=== PATIENT | female | born 1960 | race Caucasian/White ===

== ENCOUNTER → 2020-08-27 | Outpatient (CLI) | payer OTHER ==
--- NOTE | 2020-08-27 10:56 | XR ---
EXAMINATION TYPE: XR knee limited RT DATE OF EXAM: 08/27/2020 COMPARISON: NONE HISTORY: Pain TECHNIQUE: Two views are submitted. FINDINGS: Joint spaces are preserved. Osseous structures are intact. No acute fracture seen. Vascular calcifi cations noted. IMPRESSION: 1. No acute fracture or dislocation.
== END | disposition home or self-care (01) ==
LOC: RADXRMAIN 10:12
PROVIDERS: ATTEND Family Medicine
DX: M25.561 Pain in right knee (principal); R29.898 Other symptoms and signs involving the musculoskeletal system

== ENCOUNTER 2025-02-05 20:30 | Emergency (ER) | payer MEDICARE, OTHER ==
[2025-02-05 20:43] VITALS: RESP 18
--- NOTE | 2025-02-05 21:15 | ED ---
Seizure HPI - General Chief Complaint: Alcohol Stated Complaint: ETOH Time Seen by Provider: 02/05/25 20:39 Source: EMS, RN notes reviewed, old records reviewed Mode of arrival: EMS Limitations: altered mental status - History of Present Illness Initial Comments: This is a 64-year-old female to the ER for evaluation of alcohol intoxication today. Patient coming in for according to her self seizures. Patient has recurrent seizure and with seizure history. Takes seizure medication as prescribed. Patient states increased depression lately secondary to loss of her but not homicidal or suicidal MD Complaint: seizure, possible seizure -: hour(s) Description of Episode: loss of consciousness, tonic-clonic movement -: second(s) Witnessed: no Seizure History: known seizure disorder Place: home Possible Precipitating Event: none Associated Symptoms: denies other symptoms Treatments Prior to Arrival: none - Related Data Home Medications Medication Instructions Recorded Confirmed Atorvastatin Calcium [Lipitor] 40 mg PO HS 01/29/23 01/29/23 Docusate [Colace] 100 mg PO DAILY PRN 01/29/23 01/29/23 Metoprolol Tartrate [Lopressor] 25 mg PO BID 01/29/23 01/29/23 Pantoprazole [Protonix] 40 mg PO DAILY 01/29/23 01/29/23 Rivaroxaban [Xarelto] 20 mg PO HS 01/29/23 01/29/23 amLODIPine [Norvasc] 10 mg PO DAILY 01/29/23 01/30/23 lisinopriL 40 mg PO DAILY 01/29/23 01/30/23 Previous Rx's Medication Instructions Recorded Thiamine [Vitamin B-1] 100 mg PO DAILY #30 tab 01/30/23 levETIRAcetam [Keppra] 1,000 mg PO Q12HR #120 tab 01/30/23 Allergies Allergy/AdvReac Type Severity Reaction Status Date / Time No Known Allergies Allergy Verified 02/05/25 20:36 Review of Systems ROS Statement: Those systems with pertinent positive or pertinent negative responses have been documented in the HPI. ROS Other: All systems not noted in ROS Statement are negative. Past Medical History Past Medical History: Atrial Fibrillation, Seizure Disorder Additional Past Medical History / Comment(s): Patient states last seizure was oct 2022. Patient states she is "paralyzed from waist down from the covid-19 shot in 2021". History of Any Multi-Drug Resistant Organisms: None Reported Past Anesthesia/Blood Transfusion Reactions: No Reported Reaction Past Psychological History: No Psychological Hx Reported Smoking Status: Current every day smoker Past Alcohol Use History: Occasional Past Drug Use History: None Reported - Past Family History Mother Family Medical History: COPD General Exam General appearance: alert, in no apparent distress Head exam: Present: atraumatic, normocephalic, normal inspection Eye exam: Present: normal appearance, PERRL, EOMI. Absent: scleral icterus, conjunctival injection, periorbital swelling ENT exam: Present: normal exam, mucous membranes moist Neck exam: Present: normal inspection. Absent: tenderness, meningismus, lymphadenopathy Respiratory exam: Present: normal lung sounds bilaterally. Absent: respiratory distress, wheezes, rales, rhonchi, stridor Cardiovascular Exam: Present: regular rate, normal rhythm, normal heart sounds. Absent: systolic murmur, diastolic murmur, rubs, gallop, clicks GI/Abdominal exam: Present: soft, normal bowel sounds. Absent: distended, tenderness, guarding, rebound, rigid Extremities exam: Present: normal inspection, full ROM, normal capillary refill. Absent: tenderness, pedal edema, joint swelling, calf tenderness Back exam: Present: normal inspection Neurological exam: Present: alert, oriented X3, CN II-XII intact Psychiatric exam: Present: normal affect, normal mood Skin exam: Present: warm, dry, intact, normal color. Absent: rash Course Vital Signs 02/05/25 20:31 Temperature 98.0 F Pulse Rate 73 Respiratory 18 Rate Blood Pressure 100/65 O2 Sat by Pulse 96 Oximetry - Reevaluation(s) Reevaluation #1: 02/05/25 22:49 Medical records reviewed Reevaluation #2: 02/05/25 22:49 Patient symptoms unchanged no recurrent seizure Reevaluation #3: 02/05/25 22:50 Patient informed of results questions answered Reevaluation #4: Was pt. sent in by a medical professional or institution (, PA, INVOICE CODER, urgent care, hospital, or care home...) When possible be specific @ -no Did you speak to anyone other than the patient for history (EMS, parent, family, police, friend...)? What history was obtained from this source @ -no Did you review nursing and triage notes (agree or disagree)? Why? @ -agree Are old charts reviewed (outside hosp., previous admission, EMS record, old EKG, old radiological studies, urgent care reports/EKG's, care home records)? Report findings @ -yes Differential Diagnosis (chest pain, altered mental status, abdominal pain women, abdominal pain men, vaginal bleeding, weakness, fever, dyspnea, syncope, headache, dizziness, GI bleed, back pain, seizure, CVA, palpatations, mental health, musculoskeletal)? @ -prior EKG interpreted by me (3pts min.). @ -yes X-rays interpreted by me (1pt min.). @ -yes negative for acute disease CT interpreted by me (1pt min.). @ -no U/S interpreted by me (1pt. min.). @ -no What testing was considered but not performed or refused? (CT, X-rays, U/S, labs)? Why? @ -none What meds were considered but not given or refused? Why? @ -none Did you discuss the management of the patient with other professionals (professionals i.e. , PA, INVOICE CODER, lab, RT, psych nurse, social services specialist, lawyer criminal, teacher, chief risk officer, comp field case manager)? Give summary @ -no Was smoking cessation discussed for >3mins.? @ -no Was critical care preformed (if so, how long)? @ -no Were there social determinants of health that impacted care today? How? (Homelessness, low income, unemployed, alcoholism, drug addiction, transportation, low edu. Level, literacy, decrease access to med. care, skilled nursing, rehab)? @ -none Was there de-escalation of care discussed even if they declined (Discuss DNR or withdrawal of care, Hospice)? DNR status @ -no What co-morbidities impacted this encounter? (DM, HTN, Smoking, COPD, CAD, Cancer, CVA, ARF, Chemo, Hep., AIDS, mental health diagnosis, sleep apnea, morbid obesity)? @ -none Was patient admitted / discharged? Hospital course, mention meds given and route, prescriptions, significant lab abnormalities, going to OR and other pertinent info. @ - Undiagnosed new problem with uncertain prognosis? @ -no Drug Therapy requiring intensive monitoring for toxicity (Heparin, Nitro, Insulin, Cardizem)? @ -no Were any procedures done? @ -no Diagnosis/symptom? @ - Acute, or Chronic, or Acute on Chronic? @ -Acute Uncomplicated (without systemic symptoms) or Complicated (systemic symptoms)? @ -Complicated Side effects of treatment? @ -no Exacerbation, Progression, or Severe Exacerbation? @ -exacerbation Poses a threat to life or bodily function? How? (Chest pain, USA, NV, pneumonia, PE, COPD, DKA, ARF, appy, cholecystitis, CVA, Diverticulitis, Homicidal, Suicidal, threat to staff... and all critical care pts) @ -yes Reevaluation #5: Differential Seizure: Recurrent seizure disorder, febrile seizure, alcohol withdrawal, stimulants, meningitis, encephalitis, intercranial hemorrhage, intracranial tumor, stroke, eclampsia, thyrotoxicosis, hypocalcemia, hyponatremia, hypernatremia, hypomagnesemia, psychogenic, this is not meant to be an all-inclusive list. Medical Decision Making - Medical Decision Making 64 female to ER for evaluation of recurrent seizures with significant alcohol intoxication. Patient is in no acute acute distress and can be discharged home - Lab Data Result diagrams: 02/05/25 22:01 02/05/25 22:01 Lab Results 02/05/25 02/05/25 Range/Units 22:01 22:01 WBC 4.6 (3.8-10.6) k/uL RBC 3.44 L (3.80-5.40) m/uL Hgb 12.1 (11.4-16.0) gm/dL Hct 38.3 (34.0-46.0) % MCV 111.4 H (80.0-100.0) fL MCH 35.0 (25.0-35.0) pg MCHC 31.4 (31.0-37.0) g/dL RDW 15.1 (11.5-15.5) % Plt Count 175 (150-450) k/uL MPV 9.1 Macrocytosis Marked A Sodium 136 L (137-145) mmol/L Potassium 5.8 H (3.5-5.1) mmol/L Chloride 103 (98-107) mmol/L Carbon Dioxide 24 (22-30) mmol/L Anion Gap 9 mmol/L BUN 34 H (7-17) mg/dL Creatinine 0.83 (0.52-1.04) mg/dL Est GFR (CKD-EPI)AfAm 87 (>60 ml/min/1.73 sqM) Est GFR (CKD-EPI)NonAf 75 (>60 ml/min/1.73 sqM) Glucose 89 (74-99) mg/dL Calcium 9.2 (8.4-10.2) mg/dL Phosphorus 4.5 (2.5-4.5) mg/dL Magnesium 1.8 (1.6-2.3) mg/dL Total Bilirubin 0.3 (0.2-1.3) mg/dL AST 31 (14-36) U/L ALT 18 (4-34) U/L Alkaline Phosphatase 60 (38-126) U/L Total Protein 6.7 (6.3-8.2) g/dL Albumin 3.8 (3.5-5.0) g/dL Lipase 317 H (23-300) U/L Salicylates <1.0 mg/dL Acetaminophen <10.0 ug/mL Serum Alcohol 253 H* mg/dL Disposition Clinical Impression: Alcohol intoxication, Breakthrough seizure, Hyperkalemia Disposition: HOME SELF-CARE Condition: Fair Instructions (If sedation given, give patient instructions): Seizure/Epilepsy Discharge Instructions & Follow-Up, Alcohol Intoxication (ED) Is patient prescribed a controlled substance at d/c from ED?: No Referrals: Ramesh Titus [Primary Care Provider] - 1-2 days Time of Disposition: 22:50
[2025-02-05 22:19] LABS: ALT 18 U/L (4-34); AST 31 U/L (14-36); Acetaminophen <10.0 ug/mL; African American GFR (CKD) 87 (>60 ml/min/1.73 sqM); Albumin 3.8 g/dL (3.5-5.0); Alkaline Phosphatase 60 U/L (38-126); Anion Gap 9 mmol/L; Blood Urea Nitrogen 34 mg/dL (7-17); Calcium 9.2 mg/dL (8.4-10.2); Carbon Dioxide 24 mmol/L (22-30); Chloride 103 mmol/L (98-107); Glucose 89 mg/dL (74-99); Lipase 317 U/L (23-300); Magnesium 1.8 mg/dL (1.6-2.3); Non-African American GFR(CKD) 75 (>60 ml/min/1.73 sqM); Phosphorus 4.5 mg/dL (2.5-4.5); Potassium 5.8 mmol/L (3.5-5.1); Salicylate <1.0 mg/dL; Sodium 136 mmol/L (137-145); Total Bilirubin 0.3 mg/dL (0.2-1.3); Total Protein 6.7 g/dL (6.3-8.2)
[2025-02-05 22:22] LABS: Alcohol 253 mg/dL
[2025-02-05 23:21] LABS: HCT 38.3 % (34.0-46.0); HGB 12.1 gm/dL (11.4-16.0); MCHC 31.4 g/dL (31.0-37.0); MCV 111.4 fL (80.0-100.0); Macrocytosis Marked; Mean Platelet Volume 9.1; Platelet Count 175 k/uL (150-450); RBC 3.44 m/uL (3.80-5.40); RDW 15.1 % (11.5-15.5); WBC 4.6 k/uL (3.8-10.6)
[2025-02-05] MEDS: SODIUM ZIRCONIUM CYCLOSILICATE 10 GM PACKET PO ONE (23:46)
[2025-02-05] MEDS: FUROSEMIDE 20 MG TAB PO STA (23:46)
[2025-02-06 00:26] LABS: Appearance,Urine Cloudy (Clear); Bacteria,Urine Many /hpf; Bilirubin,Urine Negative (Negative); Blood,Urine Negative (Negative); Color,Urine Colorless; Glucose,Urine (UA) Negative (Negative); Hyaline Casts,Urine 2 /lpf (0-2); Ketones,Urine Negative (Negative); Leukocyte Esterase,Urine Large (Negative); Mucus,Urine Rare /hpf; Nitrite,Urine Positive (Negative); Protein,Urine Negative (Negative); RBC,Urine <1 /hpf (0-5); Specific Gravity,Urine 1.011 (1.001-1.035); Squamous Epithelial Cell,Urine 1 /hpf (0-4); Urobilinogen,Urine <2.0 mg/dL (<2.0); WBC,Urine >182 /hpf (0-5)
[2025-02-06 00:28] VITALS: BP 113/88; PULSE 67; TEMP 98.6
[2025-02-06 00:28] LABS: Amphetamine Screen,Urine Not Detected (NotDetected); Barbiturate Screen,Urine Not Detected (NotDetected); Benzodiazepines Screen,Urine Not Detected (NotDetected); Cocaine Screen,Urine Not Detected (NotDetected); Methadone Screen, Urine Not Detected (NotDetected); Opiate Screen,Urine Not Detected (NotDetected); Oxycodone Screen, Urine Not Detected (NotDetected); Phencyclidine Screen,Urine Not Detected (NotDetected); Tricyclic Antidepressant,Urine Not Detected (NotDetected); Urn Cannabinoid Scrn Not Detected (NotDetected)
[2025-02-06 01:18] LABS: Eosinophils # (M) 0.05 k/uL (0-0.7); Lymphocytes # (M) 1.75 k/uL (1.0-4.8); Monocytes # (M) 0.28 k/uL (0-1.0); Neutrophils # (M) 2.53 k/uL (1.3-7.7); Neutrophils % (M) 55 %; Nucleated Red Blood Cells 0 /100 WBC (0-0); Total Cells Counted 100
== END 2025-02-06 00:52 | disposition home or self-care (01) ==
LOC: EC 20:30
DX: F10.129 Alcohol abuse with intoxication, unspecified (principal); G40.909 Epilepsy, unspecified, not intractable, without status epilepticus; E87.5 Hyperkalemia; F17.200 Nicotine dependence, unspecified, uncomplicated; Y90.8 Blood alcohol level of 240 mg/100 ml or more
CPT/HCPCS: 99284; 36415; 80053; 83690; 83735; 84100; 85025; 80306; 80143; 80179; G0480; 80320; 81001